=== PATIENT | female | born 1970 | race Caucasian/White ===

== ENCOUNTER 2017-08-27 16:37 | Emergency (ER) | payer MEDICAID, OTHER ==
[~2017-08-27] VITALS: Ht 154.9 cm; Wt 70.0 kg
[~2017-08-27 16:37] MED LIST: IOHEXOL-300 100 ML BOTTLE ONE; SODIUM CHLORIDE 0.9% 10ML VIAL ONE
[2017-08-27] MEDS ORDERED: SODIUM CHLORIDE 0.9% 1,000 ML IV ONE (17:58)
[2017-08-27] MEDS ORDERED: MORPHINE SULFATE 4 MG/ML CPJ (NOT FOR IM USE) IV STA (17:58)
[2017-08-27] MEDS ORDERED: ONDANSETRON HCL 4MG/2ML VIAL IV STA (17:58)
[2017-08-27 18:15] LABS: BASOPHILS % 0.3 % (0.0-2.0); EOSINOPHILS % 0.7 % (0.0-5.0); HEMATOCRIT. 38.6 % (36.0-48.0); LYMPHOCYTES % 17.2 % (20.0-50.0); MEAN CORPUSCULAR HEMOGLOBIN 30.2 pg (28.0-32.0); MEAN CORPUSCULAR VOLUME 89.5 fL (81.0-99.0); MEAN PLATELET VOLUME 10.3 fl (7.4-10.4); MONOCYTES % 7.7 % (2.0-8.0); NEUTROPHILS % 74.1 % (40.0-76.0); PLATELET 237 x1000/uL (130-400); RED BLOOD CELL COUNT 4.31 mill/uL (4.2-5.4); RED CELL DISTRIBUTION WIDTH 13.5 % (11.6-14.6)
[2017-08-27 18:21] LABS: PROTHROMBIN TIME 10.6 sec (9.4-11.6)
[2017-08-27 18:24] LABS: CLARITY URINE CLEAR (CLEAR); COLOR URINE YELLOW (YELLOW); GLUCOSE URINE NEGATIVE (NEGATIVE); KETONES URINE NEGATIVE (NEGATIVE); LEUKOCYTE ESTERASE URINE NEGATIVE (NEGATIVE); NITRITE URINE NEGATIVE (NEGATIVE); OCCULT BLOOD URINE 2+ (NEGATIVE); PH URINE 6.5 (4.5-8.0); PROTEIN URINE NEGATIVE (NEGATIVE); SPECIFIC GRAVITY URINE 1.005 (1.005-1.030); UROBILINOGEN URINE 0.2 E.U./dL (0.2-1.0)
[2017-08-27 18:28] LABS: CARBON DIOXIDE 24 mEq/L (21-32); CHLORIDE 108 mEq/L (98-107)
[2017-08-27 20:53] VITALS: BP 119/68
== END 2017-08-27 20:56 | disposition home or self-care (01) ==
LOC: ER 16:37
DX: R10.13 Epigastric pain (principal); K62.5 Hemorrhage of anus and rectum; I10 Essential (primary) hypertension; Q79.0 Congenital diaphragmatic hernia; I49.3 Ventricular premature depolarization; Z97.5 Presence of (intrauterine) contraceptive device
CPT/HCPCS: 36415; 71010; 74177; 80053; 81001; 81025; 83690; 85025; 85610; 93005; 96361; 96374; 96375; 99285; A4216; J2270; J2405; Q9967; Z7610; J7030

== ENCOUNTER 2017-09-27 12:24 | Inpatient (IN) | payer OTHER ==
[~2017-09-27] VITALS: Ht 149.9 cm; Wt 72.1 kg
[2017-09-27 13:42] LABS: BASOPHILS % 0.6 % (0.0-2.0); EOSINOPHILS % 0.4 % (0.0-5.0); HEMATOCRIT. 37.4 % (36.0-48.0); HEMOGLOBIN. 12.8 g/dL (12.0-16.0); LYMPHOCYTES % 27.6 % (20.0-50.0); MEAN CORPUSCULAR HEMOGLOBIN 29.9 pg (28.0-32.0); MEAN CORPUSCULAR VOLUME 87.9 fL (81.0-99.0); MEAN PLATELET VOLUME 9.8 fl (7.4-10.4); MONOCYTES % 7.5 % (2.0-8.0); NEUTROPHILS % 63.9 % (40.0-76.0); PLATELET 238 x1000/uL (130-400); RED BLOOD CELL COUNT 4.26 mill/uL (4.2-5.4); RED CELL DISTRIBUTION WIDTH 13.1 % (11.6-14.6)
[2017-09-27 13:50] LABS: CARBON DIOXIDE 23 mEq/L (21-32); CHLORIDE 108 mEq/L (98-107)
[2017-09-27 13:52] LABS: HCG SCREEN NEGATIVE
[2017-09-27] MEDS ORDERED: ASPIRIN 81MG TABLET PO ONE (15:00)
[2017-09-27 15:24] LABS: PARTIAL THROMBOPLASTIN TIME 28.5 sec (23.4-31.0); PROTHROMBIN TIME 10.7 sec (9.4-11.6)
[2017-09-27] MEDS ORDERED: ACETAMINOPHEN 325MG TABLET PO PRN (19:30)
[2017-09-27] MEDS ORDERED: CLONIDINE 0.1MG TABLET PO PRN (19:30)
[2017-09-27] MEDS ORDERED: IPRATROPIUM/ALBUTEROL 0.5-3(2.5)MG/3ML NEB INH PRN (19:30)
[2017-09-27] MEDS ORDERED: ONDANSETRON HCL 4MG/2ML VIAL IV PRN (19:30)
[2017-09-27] MEDS ORDERED: MAGNESIUM/ALUMINUM HYDROXIDE/SIMETHICONE 30ML UDC PO PRN (19:30)
[2017-09-27] MEDS ORDERED: IOHEXOL-350 100 ML BOTTLE ONE (19:42)
[2017-09-27] MEDS ORDERED: ENOXAPARIN 40MG/0.4ML SYR SUBCUT NR (19:45)
[2017-09-27 20:44] LABS: *AMPHETAMINES SCREEN URINE NEGATIVE (NEGATIVE); *BARBITURATES SCREEN URINE NEGATIVE (NEGATIVE); *BENZODIAZEPINES SCREEN URINE NEGATIVE (NEGATIVE); *COCAINE SCREEN URINE NEGATIVE (NEGATIVE); CANNABINOID URINE SCREEN NEGATIVE (NEGATIVE); METHADONE URINE SCREEN NEGATIVE (NEGATIVE); OPIATES URINE SCREEN NEGATIVE (NEGATIVE); PHENCYCLIDINE URINE SCREEN NEGATIVE (NEGATIVE)
[2017-09-27 21:00] VITALS: BP 126/84
[2017-09-27 22:00] VITALS: BP 126/84
[2017-09-27 23:49] LABS: CREATINE KINASE 95 IU/L (26-192); CREATINE KINASE MB FRACTION 1.2 ng/mL (0.5-3.6); TROPONIN I < 0.02 ng/mL (0.00-0.04)
[2017-09-28 00:11] VITALS: BP 107/60
[2017-09-28 04:00] VITALS: BP 94/65
[2017-09-28 06:34] LABS: BASOPHILS % 0.7 % (0.0-2.0); EOSINOPHILS % 2.1 % (0.0-5.0); HEMATOCRIT. 37.9 % (36.0-48.0); HEMOGLOBIN. 12.9 g/dL (12.0-16.0); LYMPHOCYTES % 28.1 % (20.0-50.0); MEAN CORPUSCULAR HEMOGLOBIN 30.4 pg (28.0-32.0); MEAN CORPUSCULAR VOLUME 89.1 fL (81.0-99.0); MEAN PLATELET VOLUME 10.4 fl (7.4-10.4); MONOCYTES % 10.4 % (2.0-8.0); NEUTROPHILS % 58.7 % (40.0-76.0); PLATELET 219 x1000/uL (130-400); RED BLOOD CELL COUNT 4.25 mill/uL (4.2-5.4); RED CELL DISTRIBUTION WIDTH 13.2 % (11.6-14.6)
[2017-09-28 08:00] VITALS: BP 114/82
[2017-09-28 08:04] LABS: CREATINE KINASE 88 IU/L (26-192); HDL CHOLESTEROL 38 mg/dL (40-59); LDL CHOLESTEROL 103 mg/dL (5-100)
[2017-09-28 08:13] LABS: CREATINE KINASE MB FRACTION 0.8 ng/mL (0.5-3.6); TROPONIN I < 0.02 ng/mL (0.00-0.04)
[2017-09-28] MEDS: ASPIRIN 81MG EC TABLET PO SCH (09:35)
[2017-09-28 12:00] VITALS: BP 118/69
[2017-09-28] MEDS ORDERED: MECLIZINE 25MG TABLET PO PRN (15:30)
[2017-09-28 16:00] VITALS: BP 119/70
[2017-09-28 20:00] VITALS: BP 114/63
[2017-09-28] MEDS ORDERED: ENOXAPARIN 40MG/0.4ML SYR SUBCUT SCH (20:00)
[2017-09-29] VITALS: BP 116/75
[2017-09-29 04:00] VITALS: BP 110/69
[2017-09-29 05:57] LABS: BASOPHILS % 0.5 % (0.0-2.0); EOSINOPHILS % 1.9 % (0.0-5.0); HEMATOCRIT. 38.6 % (36.0-48.0); HEMOGLOBIN. 12.9 g/dL (12.0-16.0); LYMPHOCYTES % 32.1 % (20.0-50.0); MEAN CORPUSCULAR HEMOGLOBIN 30.1 pg (28.0-32.0); MEAN CORPUSCULAR VOLUME 89.9 fL (81.0-99.0); MEAN PLATELET VOLUME 10.4 fl (7.4-10.4); MONOCYTES % 10.1 % (2.0-8.0); NEUTROPHILS % 55.4 % (40.0-76.0); PLATELET 221 x1000/uL (130-400); RED BLOOD CELL COUNT 4.29 mill/uL (4.2-5.4); RED CELL DISTRIBUTION WIDTH 13.5 % (11.6-14.6)
[2017-09-29 06:30] LABS: CARBON DIOXIDE 23 mEq/L (21-32); CHLORIDE 109 mEq/L (98-107)
[2017-09-29 08:03] VITALS: BP 111/75
[2017-09-29] MEDS: ASPIRIN 81MG EC TABLET PO SCH (08:57)
[2017-09-29 12:00] VITALS: BP 115/73
[2017-09-29 15:56] VITALS: BP 116/81
[2017-09-29 18:00] VITALS: BP 116/81
== END 2017-09-29 18:25 | disposition home or self-care (01) | DRG 48 ==
LOC: ER 12:47 → 7WST 18:14 → EDBEDREQ 18:16 → ENRESERV 19:41
PROVIDERS: ADMIT Internal Medicine; ATTEND Internal Medicine
DX: G90.8 Other disorders of autonomic nervous system (principal); E87.8 Other disorders of electrolyte and fluid balance, not elsewhere classified; I10 Essential (primary) hypertension; R55 Syncope and collapse; R06.02 Shortness of breath; M06.9 Rheumatoid arthritis, unspecified; R91.1 Solitary pulmonary nodule; M94.0 Chondrocostal junction syndrome [Tietze]
CPT/HCPCS: 36415; 71010; 71275; 78580; 80048; 80061; 80305; 82550; 82553; 83735; 84443; 84484; 84703; 85025; 85379; 85610; 85730; 93005; 93970; 96372; 99285; J1650; J2405; J8597; Q9967

== ENCOUNTER 2019-11-30 14:44 | Emergency (ER) | payer SELFPAY | END 2019-11-30 23:00 | disposition left against medical advice (07) | LOC: ER 14:44 | DX: Z53.21 Procedure and treatment not carried out due to patient leaving prior to being seen by health care provider (principal) ==